=== PATIENT | female | born 1985 | race Caucasian/White ===

== ENCOUNTER 2016-06-23 17:41 | Emergency (ER) | payer SELFPAY ==
--- NOTE | ~2016-06-23 | ER ---
PATIENT'S NAME: HAROON BAILEY [facility] AGE: 31 Y [address] ROOM: [place] [id number] LOCATION: [facility] ADMIT DATE: 06/23/2016 ER/Outpatient Report DISCHARGE DATE: 06/23/2016 FAMILY PHYSICIAN: Vanda Ceballos MD ATTENDING PHYSICIAN: Breana Hernandez Time of Arrival: 1741 hours. Time of Evaluation: 1805 hours. CHIEF COMPLAINT: Bilateral arm injuries from fall. HISTORY OF PRESENT ILLNESS: This is a 31-year-old female, who presents to the ER. States she fell approximately 22 hours prior to arrival. She states she tripped over her daughter's play tent and fell on both of her outstretched arms. She states her right elbow is hurting her the most and her right wrist, but she is also having pain in her left elbow and wrist as well. She denies hitting her head. She denies any neck or back pain. No other problems at this time. She has good sensation bilaterally to her upper extremities. ALLERGIES: NO KNOWN ALLERGIES. MEDICATIONS: Please see medication list in nurse's notes. PAST MEDICAL HISTORY: Migraines and asthma. PAST SURGICAL HISTORY: D and C. SOCIAL HISTORY: Denies smoking, drug, or alcohol use. REVIEW OF SYSTEMS: CONSTITUTIONAL: Denies any change in weight or fatigue. MUSCULOSKELETAL: Complaining of bilateral arm pain. HEMATOLOGIC: No easy bruising or bleeding. SKIN: No lesions or rashes. PHYSICAL EXAMINATION: VITAL SIGNS: Height 5 feet 6 inches stated, weight 81.9 kg taken, blood pressure is 141/74, pulse 89, respirations 18, temperature 98.6 degrees PATIENT'S NAME: HAROON BAILEY [facility] AGE: 31 Y [address] ROOM: [place], [place] [address] LOCATION: [facility] ADMIT DATE: 06/23/2016 ER/Outpatient Report DISCHARGE DATE: 06/23/2016 FAMILY PHYSICIAN: Vanda Ceballos MD ATTENDING PHYSICIAN: Breana Hernandez tympanically, saturations 100% on room air. [place] Coma Score is 15. GENERAL: An alert, tearful 31-year-old female, in mild distress. LUNGS: Clear to auscultation bilaterally. No wheezes or crackles. Normal respiratory effort. HEART: Regular rate and rhythm. No lifts, thrills, or murmurs. EXTREMITIES: Her right upper extremity, she does have tenderness in her right elbow. She is unable to supinate and pronate her arm secondary to pain. She does have difficulty with flexion-extension of her right wrist, but she is able to do that, and she does have some pain with palpation over the distal aspect of her radius ulna. She has good sensation to her right hand. She has good strength in her fingers and good radial pulse. Her left elbow is also tender with palpation. She is able to supinate and pronate, but she is having some pain in her left elbow with that. She is able to flex and extend her left wrist. She has good radial pulse in her left upper extremity and good sensation distally as well. She has full range of motion in all other limbs. NEUROLOGIC: Cranial nerves II through XII are grossly intact. Gait is steady without assistance. LABORATORY DATA AND X-RAYS: Labs, none were done. X-rays of the right elbow show radial head fracture. Right wrist x-ray was done. No obvious fracture was seen. Left elbow picture shows a posterior fat pad and possible fracture to the radial head. No fracture seen in the left wrist. IMPRESSION: 1. Right radial head fracture. 2. Posterior fat pad and possible fracture to left elbow. 3. Bilateral wrist sprain. ASSESSMENT AND PLAN: Discussed the patient's care with Dr. Yang. Dr. Yang also evaluated the patient. We did place the patient's right upper extremity in a posterior splint and placed her arm in a sling for support, and we placed her left upper extremity in a sling for support as well. She needs some ice and to elevate the arm. We will dismiss the patient to home with a prescription for [place] to use as directed. She may alternate that pain medication with ibuprofen if needed, and we advised her to follow up with Orthopedic on Saturday. We did call Dr. Cheng with [facility] and started her orthopedic preference, and she will follow up with [facility] at that time. The patient and the patient's understand and agree with care. CURTIS LEE PA-C FOR BREANA HERNANDEZ MD PATIENT'S NAME: HAROON BAILEY [facility] AGE: 31 Y [address] ROOM: [place], [place] [address] LOCATION: [facility] ADMIT DATE: 06/23/2016 ER/Outpatient Report DISCHARGE DATE: 06/23/2016 FAMILY PHYSICIAN: Vanda Ceballos MD ATTENDING PHYSICIAN: Breana Hernandez/sumeet /[id number] d: t: 06/29/16 1237, OUTPATIENT REPORT
[~2016-06-23 17:41] MED LIST: ACETAMINOPHEN325 MG PO; CALCIUM CARBON500 MG PO; DEPAKOTE250 MG PO; DERMOPLAST SPRA56 GM TOP; MOTRIN800 MG PO; PERCOCET 5-3251 EACH PO; PRENATAL 1+1)(P1 TAB PO; ZANTAC150 MG PO
== END 2016-06-23 19:37 | disposition disaster alternative care site (69) ==
LOC: GACC 17:41
PROC: 2W3CX1Z Immobilization of Right Lower Arm using Splint (ICD-10-PCS; principal; 2016-06-23)
DX: S52.121A Displaced fracture of head of right radius, initial encounter for closed fracture (principal); S63.502A Unspecified sprain of left wrist, initial encounter; S63.501A Unspecified sprain of right wrist, initial encounter; Z79.899 Other long term (current) drug therapy; W18.09XA Striking against other object with subsequent fall, initial encounter